=== PATIENT | female | born 2000 | race Caucasian/White ===

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

== ENCOUNTER 2021-03-08 14:07 | Emergency (ER) | payer OTHER ==
[2021-03-08] MEDS ORDERED: cefTRIAXone 500 MG VIAL IM STA (14:57)
[2021-03-08] MEDS ORDERED: AZITHROMYCIN 250 MG TABLET PO STA (14:57)
[2021-03-08] MEDS ORDERED: LIDOCAINE 1% 2 ML VIAL MC ONE (14:57)
[2021-03-08] MEDS ORDERED: HYDROcod/ACETAM 5/325 MG TABLET PO STA (14:58)
[2021-03-08 15:13] LABS: BILIRUBIN,URINE NEGATIVE (NEGATIVE); GLUCOSE, URINE (UA) NEGATIVE (NEGATIVE); KETONES,URINE (UA) NEGATIVE (NEGATIVE); LEUKOCYTE ESTERASE, URINE NEGATIVE (NEGATIVE); NITRITE,URINE NEGATIVE (NEGATIVE); OCCULT BLOOD,URINE NEGATIVE (NEGATIVE); PH,URINE 5.5 PH (5.0-7.5); PROTEIN,URINE 30 mg/dL (NEGATIVE); UROBILINOGEN,URINE 0.2 (NORMAL) E.U./dL (NORMAL)
[2021-03-08 15:15] LABS: BACTERIA,URINE None Seen /HPF (None Seen); CLARITY,URINE CLEAR (CLEAR); HCG UR QUAL NEGATIVE; MUCUS,URINE Few Strands; RBC,URINE 0-5 /HPF (0-5); SQUAMOUS EPITHELIAL CELL,UR FEW Squamous (<= Few); WBC,URINE 0-3 /HPF (0-5)
--- NOTE | 2021-03-08 15:15 | ED Physician Documentation ---
History of Present Illness - Stated complaint Stated Complaint: FEMALE - Chief complaint Chief Complaint: Abd Pain - Additonal information Additional information: 20-year-old female presents the emergency department for evaluation of a lower pelvic pain vaginal pain and vaginal discharge. She reports that for about 4 days she felt like she has had cuts down there. She also states that she has been having a lot of thick yellow discharge that she thought was likely a yeast infection. She does have a history of chlamydia. She was seen in this emergency department in December 2019 for concerns of pelvic pain and vaginal discharge. She was treated presumptively for PID at that time. Patient is sexually active with one male no condom use. She reports that he was tested today for sexually transmitted infection but does not know the results. Patient endorses dysuria but no fevers. No vomiting back pain or flank pain. Review of Systems Constitutional: reports: Reviewed and negative Eyes: reports: Reviewed and negative Throat: reports: Reviewed and negative Cardiac: reports: Chest pain / pressure Respiratory: reports: Reviewed and negative GI: reports: Reviewed and negative. denies: Nausea : reports: Dysuria, Discharge, Other (vaginal sores). 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 : None HEENT: None Psych: None Musculoskeletal: None Derm: None - Past Surgical History Past Surgical History: No - Present Medications Home Medications: Ambulatory Orders Medication Instructions Recorded Confirmed Benzonatate [Tessalon Perle] 100 - 200 mg PO TID PRN #30 capsule 01/26/20 Cetirizine HCl/Pseudoephedrine 1 each PO BID PRN #30 tab.er.12h 01/26/20 [Zyrtec-D Tablet] Ondansetron Odt [Zofran] 4 mg TL Q6H PRN #10 tablet 09/29/20 Sulfamethox/Trimeth 800/160 1 each PO BID #14 tablet 09/29/20 [Bactrim Ds 800/160] Acyclovir 400 mg PO TID 21 Days #21 tablet 03/08/21 Doxycycline Hyclate 100 mg PO BID 14 Days #28 03/08/21 HYDROcod/ACETAM 5/325 [[place] 5/325] 1 tab PO DAILY #3 tablet 03/08/21 - Allergies Allergies/Adverse Reactions: Allergies Allergy/AdvReac Type Severity Reaction Status Date / Time amoxicillin [From Augmentin] Allergy Hives Verified 03/08/21 14:21 azithromycin [From Zithromax] Allergy Hives Verified 03/08/21 14:21 cefdinir [From Omnicef] Allergy Hives Verified 03/08/21 14:22 clavulanic acid Allergy Hives Verified 03/08/21 14:21 [From Augmentin] - Social History Does the pt smoke?: No Smoking Status: Never smoker Does the pt drink ETOH?: Yes Does the pt have substance abuse?: No - Immunizations Immunizations are current?: Yes - POLST Patient has POLST: No PD ED PE EXPANDED - General General: Alert, Anxious - Cardiac Cardiac: Regular Rate, Radial strong equal, Pedal strong equal, Cap refill < 2 sec - Abdomen Abdomen: Normal Bowel sounds. No: Tender to palpation - Female Female : Vaginal Discharge, Elevator Mechanic present, Other (Poorly tolerated pelvic exam. Multiple shallow ulcerations at the entrance to the vagina. Unable to do a speculum or bimanual exam. Moderate amount of yellow discharge.) Results - Vitals Vitals: Vital Signs - 24 hr 03/08/21 14:15 Temperature 36.6 C Heart Rate 82 Respiratory 14 Rate Blood Pressure 143/98 H O2 Saturation 100 Oxygen O2 Source Room air - Labs Labs: Microbiology 03/08/21 14:45 Wet Prep - Final Genital - Vaginal Laboratory Tests 03/08/21 14:38 Urine Color YELLOW Urine Clarity CLEAR Urine pH 5.5 Ur Specific [place] >=1.030 H Urine Protein 30 H Urine Glucose (UA) NEGATIVE Urine Ketones NEGATIVE Urine Occult Blood NEGATIVE Urine Nitrite NEGATIVE Urine Bilirubin NEGATIVE Urine Urobilinogen 0.2 (NORMAL) Ur Leukocyte Esterase NEGATIVE Urine RBC 0-5 Urine WBC 0-3 Ur Squamous Epith Cells FEW Squamous Urine Bacteria None Seen Urine Mucus Few Strands Ur Microscopic Review INDICATED Urine Culture Comments NOT INDICATED Urine HCG, Qual NEGATIVE PD MEDICAL DECISION MAKING - ED course Complexity details: reviewed results, re-evaluated patient, considered differential, d/w patient ED course: 20-year-old female presents to the emergency department for evaluation of 4 days pain in her genital area that feels like cuts as well as yellow vaginal discharge. She is sexually active with one partner but not using condoms. She does have a history of chlamydia in the past. This provider did attempt to do a chaperoned pelvic exam but due to the lesions at the entrance to the vaginal vault it was not well tolerated and therefore a bimanual or speculum exam could not be completed. However she does have multiple shallow ulcerated lesions that is most consistent with herpes simplex. Patient will be started on acyclovir for first time outbreak as she denies ever having similar in the past. She did report yellow vaginal discharge. Her wet prep is negative GC is pending however I have empirically prescribed her 500 mg of ceftriaxone here in the emergency department and will discharge her with a prescription for doxycycline. Though I cannot confirm PID based on the clinical exam she is being treated as such with the ceftriaxone and doxycycline. I have encouraged her to have close follow-up with OB in the next few weeks to ensure full resolution of symptoms. We discussed that outpatient testing of herpes can be considered to confirm the suspected diagnosis. I am prescribing a short course of short-acting opioid pain medication for this patient. 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 I have discussed that the opioids are for short term therapy only, and will not be refilled from the ED. I am prescribing a short course of narcotic pain medication for you. These are potentially dangerous and addictive medications that should be used carefully. These medications may constipate you. Take an ubae-fbn-gvntfdn stool softener (docusate) twice daily with plenty of water while taking these medications. If you go 24 hours without a bowel movement, take gvgj-pib-nfkduer miralax, per package instructions. Do not drink or drive while taking these medications. If you received narcotic or sedating medications while in the emergency department, do not drive for 24 hours. Store this medication in a safe, secure place and out of reach of children. It is a violation of federal law to give or sell this medication to another person or to use in a manner other than prescribed. The ED will not refill narcotic prescriptions, including prescriptions lost or stolen. To dispose of unwanted medications: 1. [facility] at [address] in [place] has a medication drop box. They accept prescription medications (in pill form) Saturday through Saturday 9:00 a.m. to 5:00 p.m. 2. The [facility] accepts prescription medications (in pill form only) for disposal year round. Call for more information. 3. Contact the [facility] for the next [facility] sponsored prescription drug collection event. , [phone], or [phone]; Note that many narcotic pain relievers also contain Tylenol/acetaminophen. Please ensure that your total dose of acetaminophen from all sources does not exceed 3 g (3000 mg) per day. Departure - Departure Disposition: Home, Self Care Clinical Impression: Vaginal lesion, Vaginal discharge Condition: Stable Record reviewed to determine appropriate education?: Yes Instructions: Herpes Care Sores, STDs Follow-Up: [facility] [Provider Group] Prescriptions: Acyclovir 400 mg PO TID 21 Days #21 tablet Doxycycline Hyclate 100 mg PO BID 14 Days #28 HYDROcod/ACETAM 5/325 [[place] 5/325] 1 tab PO DAILY #3 tablet Comments: Cassity I hope that you are feeling better soon. As we discussed I suspect that the ulcerations that you have in your genital area are likely herpes. I am prescribing a medication called acyclovir that you are to take 3 times a day for the next 7 days. Taking a warm sitz bath/Epson salt bath at home can help with pain and discomfort in the genital area. I do recommend that you take ibuprofen with food 3 times a day for pain. You may also take the very limited amount of hydrocodone that I have prescribed for pain. We did do what is called a wet prep to check for yeast bacterial vaginosis and trichomonas. That is negative. However we are empirically treating you as though you could have chlamydia or gonorrhea. You were given an injection of an antibiotic here in the emergency department and you are to fill the prescription for the doxycycline and begin taking twice daily for the next 14 days. It is very important that you schedule an appointment for follow-up with the women's department. Repeat testing should be completed to make sure that the symptoms have fully resolved. As we discussed if you are positive for herpes this is a infection that can Episodically flare. Blood testing to test for this can be completed at the women's health clinic.
[2021-03-08 16:06] VITALS: BP 111/60
[2021-03-08 20:46] LABS: CHLAMYDIA TRACHOMATIS DNA NEGATIVE (NEGATIVE); NEISSERIA GONORRHOEAE DNA NEGATIVE (NEGATIVE); TRICHOMONAS VAGINALIS DNA NEGATIVE (NEGATIVE)
== END 2021-03-08 16:05 | disposition home or self-care (01) ==
LOC: ED 14:07
DX: N89.8 Other specified noninflammatory disorders of vagina (principal)
CPT/HCPCS: 81001; 81025; 87210; 87491; 87591; 87661; 96372; 99283; A9270; 81003; 87086

== ENCOUNTER 2021-05-15 16:22 | Emergency (ER) | payer OTHER ==
--- NOTE | 2021-05-15 17:05 | XRAY Report ---
PROCEDURE: Chest 1 View X-Ray INDICATIONS: Chest Pain TECHNIQUE: One view of the chest was acquired. COMPARISON: None. FINDINGS: Surgical changes and devices: None. Lungs and pleura: No pleural effusions or pneumothorax. Lungs are clear. Mediastinum: Mediastinal contours appear normal. Heart size is normal. Bones and chest wall: No suspicious bony lesions. Overlying soft tissues appear unremarkable. IMPRESSION: No acute disease. Reviewed by: Aneudy Alford MD on 05/15/2021 5:03 PM PDT Approved by: Aneudy Alford MD on 05/15/2021 5:03 PM PDT Station ID: [id number]
[2021-05-15 17:09] LABS: BASOPHILS % (AUTO) 0.2 %; EOSINOPHILS % (AUTO) 0.6 %; HCT - HEMATOCRIT 35.4 % (37.0-47.0); HGB - HEMOGLOBIN 11.7 g/dL (12.0-16.0); LYMPHOCYTES # (AUTO) 1.7 10^3/uL (1.5-3.5); LYMPHOCYTES % (AUTO) 32.6 %; MEAN CORPUSCULAR HGB CONC 33.1 g/dL (32.0-36.0); MEAN CORPUSCULAR VOLUME 93.7 fL (81.0-99.0); MONOCYTES # (AUTO) 0.4 10^3/uL (0.0-1.0); MONOCYTES % (AUTO) 6.7 %; NEUTROPHILS # (AUTO) 3.2 10^3/uL (1.5-6.6); NEUTROPHILS % (AUTO) 59.5 %; PLT - PLATELET COUNT 279 10^3/uL (130-450); RED BLOOD COUNT 3.78 10^6/uL (4.20-5.40); RED CELL DISTRIBUTION WIDTH 13.8 % (12.0-15.0); WHITE BLOOD COUNT 5.3 x10^3/uL (4.8-10.8)
--- NOTE | 2021-05-15 17:17 | ED Physician Documentation ---
History of Present Illness - Stated complaint Stated Complaint: LEFT ARM & LEG TINGLING, CHEST TIGHTNESS - Chief complaint Chief Complaint: Cardiac - History obtained from History obtained from: Patient, Friend - History of Present Illness Pain level max: 3 Pain level now: 2 - Additonal information Additional information: Patient is a 20-year-old female who presents to the emergency department stating that her chest feels tight and like it is hard to take a deep breath. She states that this been ongoing for the past several days. She states occasionally her left arm has tingling and occasionally her right arm has tingling. Both feel normal currently. No difficulty with speech. No facial droop. No weakness in the extremities. No back pain. She states she is unsure if she could be . She does smoke, vape, but is never used inhalers. No young family history of cardiac disease. No history of blood clots. Patient has had no swelling in her legs. No recent travel or surgery. Worse with taking a deep breath, better with rest. Patient states that she has had her Covid vaccinations. Review of Systems Ten Systems: 10 systems reviewed and negative Constitutional: denies: Fever, Chills Cardiac: denies: Chest pain / pressure Respiratory: reports: Dyspnea, Cough (Mild, dry). 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 : None HEENT: None Psych: None Musculoskeletal: None Derm: None - Past Surgical History Past Surgical History: No - Present Medications Home Medications: Ambulatory Orders Medication Instructions Recorded Confirmed Famotidine [Pepcid] 20 mg PO BID #60 tablet 05/15/21 HYDROcod/ACETAM 5/325 [[place] 5/325] 1 - 2 ea PO Q6H PRN #14 tablet 05/15/21 Ondansetron Odt [Zofran] 4 mg TL Q6H PRN #10 tablet 05/15/21 - Allergies Allergies/Adverse Reactions: Allergies Allergy/AdvReac Type Severity Reaction Status Date / Time amoxicillin [From Augmentin] Allergy Hives Verified 05/15/21 16:40 azithromycin [From Zithromax] Allergy Hives Verified 05/15/21 16:40 cefdinir [From Omnicef] Allergy Hives Verified 05/15/21 16:40 clavulanic acid Allergy Hives Verified 05/15/21 16:40 [From Augmentin] - Social History Does the pt smoke?: No Smoking Status: Never smoker Does the pt drink ETOH?: Yes Does the pt have substance abuse?: No - Immunizations Immunizations are current?: Yes - POLST Patient has POLST: No PD ED PE NORMAL - Vitals Vital signs reviewed: Yes - General General: Alert and oriented X 3, No acute distress, Well developed/nourished - HEENT HEENT: PERRL, Moist mucous membranes - Neck Neck: Supple, no meningeal sign - Cardiac Cardiac: RRR, No murmur, Strong equal pulses - Respiratory Respiratory: No respiratory distress, Clear bilaterally - Abdomen Abdomen: Soft, Non tender, Non distended - Back Back: No CVA TTP, No spinal TTP - Derm Derm: Warm and dry, No rash - Extremities Extremities: No edema, No calf tenderness / cord - Neuro Neuro: Alert and oriented X 3 - Psych Psych: Normal mood, Normal affect Results - Vitals Vitals: Vital Signs - 24 hr 05/15/21 05/15/21 05/15/21 16:35 17:40 17:47 Temperature 37.2 C Heart Rate 88 87 82 Respiratory 16 14 22 Rate Blood Pressure 118/65 134/122 H O2 Saturation 100 100 05/15/21 20:56 Temperature Heart Rate 78 Respiratory 16 Rate Blood Pressure 109/61 O2 Saturation 100 Oxygen O2 Source Room air - EKG (time done) 1644 Rate: Rate (enter#) (87) Rhythm: NSR [place]: Normal Intervals: Normal OK QRS: Normal Ischemia: Normal ST segments - Labs Labs: Laboratory Tests 05/15/21 05/15/21 05/15/21 17:00 17:00 17:00 WBC 5.3 RBC 3.78 L Hgb 11.7 L Hct 35.4 L MCV 93.7 MCH 31.0 MCHC 33.1 RDW 13.8 Plt Count 279 MPV 10.0 Neut # (Auto) 3.2 Lymph # (Auto) 1.7 [place] # (Auto) 0.4 Eos # (Auto) 0.0 Baso # (Auto) 0.0 Absolute Nucleated RBC 0.00 Nucleated RBC % 0.0 Sodium 137 Potassium 3.7 Chloride 104 Carbon Dioxide 24 Anion Gap 9.0 BUN 18 Creatinine 0.8 Estimated GFR (MDRD) 92 Glucose 57 L* POC Whole Bld Glucose Calcium 9.2 Total Bilirubin 0.8 AST 26 ALT 17 Alkaline Phosphatase 63 Troponin I High Sens < 2.3 L Total Protein 7.5 Albumin 4.6 Globulin 2.9 Albumin/Globulin Ratio 1.6 Lipase 32 Urine Color Urine Clarity Urine pH Ur Specific [place] Urine Protein Urine Glucose (UA) Urine Ketones Urine Occult Blood Urine Nitrite Urine Bilirubin Urine Urobilinogen Ur Leukocyte Esterase Ur Microscopic Review Urine Culture Comments Urine HCG, Qual Urine Opiates Screen Ur Oxycodone Screen Urine Methadone Screen Ur Propoxyphene Screen Ur Barbiturates Screen Ur Tricyclics Screen Ur Phencyclidine Scrn Ur Amphetamine Screen U Methamphetamines Scrn U Benzodiazepines Scrn Urine Cocaine Screen U Cannabinoids Screen 05/15/21 05/15/21 05/15/21 17:30 17:30 19:27 WBC RBC Hgb Hct MCV MCH MCHC RDW Plt Count MPV Neut # (Auto) Lymph # (Auto) [place] # (Auto) Eos # (Auto) Baso # (Auto) Absolute Nucleated RBC Nucleated RBC % Sodium Potassium Chloride Carbon Dioxide Anion Gap BUN Creatinine Estimated GFR (MDRD) Glucose POC Whole Bld Glucose 71 Calcium Total Bilirubin AST ALT Alkaline Phosphatase Troponin I High Sens Total Protein Albumin Globulin Albumin/Globulin Ratio Lipase Urine Color YELLOW Urine Clarity CLEAR Urine pH 7.0 Ur Specific [place] 1.020 Urine Protein NEGATIVE Urine Glucose (UA) NEGATIVE Urine Ketones NEGATIVE Urine Occult Blood NEGATIVE Urine Nitrite NEGATIVE Urine Bilirubin NEGATIVE Urine Urobilinogen 0.2 (NORMAL) Ur Leukocyte Esterase NEGATIVE Ur Microscopic Review NOT INDICATED Urine Culture Comments NOT INDICATED Urine HCG, Qual NEGATIVE Urine Opiates Screen NEGATIVE Ur Oxycodone Screen NEGATIVE Urine Methadone Screen NEGATIVE Ur Propoxyphene Screen NEGATIVE Ur Barbiturates Screen NEGATIVE Ur Tricyclics Screen NEGATIVE Ur Phencyclidine Scrn NEGATIVE Ur Amphetamine Screen NEGATIVE U Methamphetamines Scrn NEGATIVE U Benzodiazepines Scrn NEGATIVE Urine Cocaine Screen NEGATIVE U Cannabinoids Screen NEGATIVE - Rads (name of study) cxr Radiology: Final report received, EMP read contemporaneously, See rad report (No acute abnormality) CT PA Radiology: Final report received, EMP read contemporaneously, See rad report (No PE. No acute abnormality) PD MEDICAL DECISION MAKING - ED course Complexity details: reviewed results, re-evaluated patient, considered differential (No ST elevation OR, no aortic dissection, no PE, no tension pneumothorax, no aortic aneurysm), d/w patient, d/w family ED course: Unclear etiology of the patient's symptoms. Maalox did not seem to change her pain. Pain did not change much with Toradol. No evidence of aortic dissection, pulmonary embolus. No evidence of biliary colic. Abdomen is soft, nontender nondistended on serial exam. No significant lab abnormalities. We will trial her on pain medication and nausea medication for home and see how she progresses. Patient was mildly hypoglycemic, this is a recurrent issue for the patient. Tolerating p.o. without difficulty here. Blood sugar normal on fingerstick glucose recheck. Patient counseled regarding signs and symptoms for which I believe and urgent re-evaluation would be necessary. Patient with good u nderstanding of and agreement to plan and is comfortable going home at this time This document was made in part using voice recognition software. While efforts are made to proofread this document, sound alike and grammatical errors may occur. Departure - Departure Disposition: 01 Home, Self Care Clinical Impression: Chest pain Qualifiers: Chest pain type: unspecified Qualified Code(s): R07.9 - Chest pain, unspecified Condition: Good Instructions: ED Chest Pain Atypical Unkn Cause Follow-Up: your,doctor in 1 week [Other] Prescriptions: HYDROcod/ACETAM 5/325 [[place] 5/325] 1 - 2 ea PO Q6H PRN #14 tablet PRN Reason: Pain Famotidine [Pepcid] 20 mg PO BID #60 tablet Ondansetron Odt [Zofran] 4 mg TL Q6H PRN #10 tablet PRN Reason: Nausea / Vomiting Comments: The cause of your symptoms is unclear today. Please follow-up with your doctor for further care. Return if you worsen. Drink plenty of fluids and rest. I am prescribing a short course of narcotic pain medication for you. These are potentially dangerous and addictive medications that should be used carefully. These medications may constipate you. Take an vdld-ocq-pikyoti stool softener (docusate) twice daily with plenty of water while taking these medications. If you go 24 hours without a bowel movement, take acka-hdn-aomemfr miralax, per package instructions. Do not drink or drive while taking these medications. If you received narcotic or sedating medications while in the emergency department, do not drive for 24 hours. Store this medication in a safe, secure place and out of reach of children. It is a violation of federal law to give or sell this medication to another person or to use in a manner other than prescribed. The ED will not refill narcotic prescriptions, including prescriptions lost or stolen. To dispose of unwanted medications: 1. [facility] at [address] in [place] has a medication drop box. They accept prescription medications (in pill form) Saturday through Saturday 9:00 a.m. to 5:00 p.m. 2. The [facility] Police Department accepts prescription medications (in pill form only) for disposal year round. Call for more information. 3. Contact the [facility] for the next [facility] sponsored prescription drug collection event. , [phone], or [phone]; Discharge Date/Time: 05/15/21 20:56
[2021-05-15 17:25] LABS: ALBUMIN 4.6 g/dL (3.2-5.5); ALBUMIN/GLOBULIN RATIO 1.6 (1.0-2.2); BILIRUBIN,TOTAL 0.8 mg/dL (0.2-1.0); CALCIUM 9.2 mg/dL (8.5-10.3); CREATININE 0.8 mg/dL (0.4-1.0); POTASSIUM 3.7 mmol/L (3.5-5.0); TOTAL PROTEIN 7.5 g/dL (6.7-8.2)
[2021-05-15 17:38] LABS: BILIRUBIN,URINE NEGATIVE (NEGATIVE); GLUCOSE, URINE (UA) NEGATIVE (NEGATIVE); KETONES,URINE (UA) NEGATIVE (NEGATIVE); LEUKOCYTE ESTERASE, URINE NEGATIVE (NEGATIVE); NITRITE,URINE NEGATIVE (NEGATIVE); OCCULT BLOOD,URINE NEGATIVE (NEGATIVE); PROTEIN,URINE NEGATIVE (NEGATIVE); UROBILINOGEN,URINE 0.2 (NORMAL) E.U./dL (NORMAL)
[2021-05-15] MEDS: ALBUTEROL NEB 2.5 MG/3 ML INH STA (17:39)
[2021-05-15 17:54] LABS: MUDS CUTOFF CONCENTRATIONS CUTOFF CONC BELOW:
[2021-05-15 17:55] LABS: CLARITY,URINE CLEAR (CLEAR); HCG UR QUAL NEGATIVE
[2021-05-15 18:15] LABS: AMPHETAMINE SCREEN,URINE NEGATIVE (NEGATIVE); BARBITURATE SCREEN,UR NEGATIVE (NEGATIVE); BENZODIAZEPINES SCREEN, URINE NEGATIVE (NEGATIVE); COCAINE SCREEN URINE NEGATIVE (NEGATIVE); METHADONE SCREEN, URINE NEGATIVE (NEGATIVE); METHAMPHETAMINES SCREEN, URINE NEGATIVE (NEGATIVE); OPIATE SCREEN, URINE NEGATIVE (NEGATIVE); OXYCODONE SCREEN, URINE NEGATIVE (NEGATIVE); PROPOXYPHENE SCREEN, URINE NEGATIVE (NEGATIVE); THC CANNABINOID SCREEN, URINE NEGATIVE (NEGATIVE); TRICYCLIC ANTIDEPRESSANT,URINE NEGATIVE (NEGATIVE)
[2021-05-15] MEDS: KETOROLAC 30 MG/ML VIAL IVP STA (18:51)
[2021-05-15] MEDS: MAG HYDROX/AL HYDROX/SIMETH 30 ML UDC PO STA (18:52)
[2021-05-15] MEDS ORDERED: IOPAMIDOL-300 100 ML VIAL ONE (18:53)
[2021-05-15] MEDS: IOPAMIDOL-300 100 ML VIAL IVP ONE (19:37)
--- NOTE | 2021-05-15 19:42 | CT Report ---
PROCEDURE: ANGIO CHEST W/WO INDICATIONS: chest pain, dyspnea, PE study CONTRAST: IV CONTRAST: Isovue 300 ml: 80 PO CONTRAST: *NO PO CONTRAST TECHNIQUE: After the administration of intravenous contrast, images were acquired from the pulmonary apices to t he posterior costophrenic angles. 3-dimensional maximum intensity projection (MIP) coronal and sagit osbaldo reformats were then acquired through the thorax. For radiation dose reduction, the following was used: automated exposure control, adjustment of mA and/or kV according to patient size. COMPARISON: CXR earlier today. FINDINGS: Image quality: Excellent. Pulmonary arteries: Pulmonary arteries are normal in size, and demonstrate no intraluminal filling d efects to suggest pulmonary embolism. Lungs and pleura: Lungs are clear. No pleural effusions or pneumothorax. Central and peripheral ai rways are patent. Mediastinum: Heart size is normal, without pericardial effusion. No mediastinal or hilar adenopathy . Thoracic aorta is normal in caliber and enhancement. Esophagus is normal in caliber, without hiat al hernia. Bones and chest wall: No suspicious bony lesions. Ribs and thoracic spine appear intact throughout. No axillary or supraclavicular adenopathy. The thyroid is normal in size and there are no incident al findings. Abdomen: Visualized upper abdominal solid organs appear normal in the early arterial phase of enhanc ement. IMPRESSION: 1. No pulmonary embolism. 2. No acute airspace opacity. Reviewed by: Dheeraj Walls MD on 05/15/2021 7:41 PM PDT Approved by: Dheeraj Walls MD on 05/15/2021 7:41 PM PDT Station ID: [id number]
[2021-05-15] MEDS: ONDANSETRON 4 MG/2 ML VIAL IVP STA (20:31)
[2021-05-15] MEDS: MORPHINE 2 MG/ML CARPUJECT IVP STA (20:33)
[2021-05-15 20:56] VITALS: BP 109/61
== END 2021-05-15 20:56 | disposition home or self-care (01) ==
LOC: ED 16:22
DX: R07.9 Chest pain, unspecified (principal); E16.2 Hypoglycemia, unspecified; Z20.822 Contact with and (suspected) exposure to COVID-19
CPT/HCPCS: 36415; 71045; 71275; 80053; 80306; 81003; 81025; 83690; 84484; 85025; 87635; 93005; 94640; 96374; 96375; 99284; A9270; Q9967; 81001; 87086

== ENCOUNTER 2021-07-15 12:01 | Emergency (ER) | payer OTHER ==
[2021-07-15 12:38] LABS: RAPID STREP SCREEN Negative (Negative)
[2021-07-15] MEDS ORDERED: DEXAMETHASONE 10 MG/ML VIAL PO STA (16:05)
[2021-07-15] MEDS ORDERED: CHERRY SYRUP 10 ML UDC PO ONE (16:05)
[2021-07-15] MEDS ORDERED: HYDROcod/ACETAM 5/325 MG TABLET PO STA (16:05)
--- NOTE | 2021-07-15 16:19 | ED Physician Documentation ---
History of Present Illness - Stated complaint Stated Complaint: SORE THROAT - Chief complaint Chief Complaint: Heent - Additonal information Additional information: 21-year-old female presents emergency department for evaluation of 3 days sore throat. No cough. She does report a subjective fever. No tonsillar exudate. No new sick contacts. Fully vaccinated for COVID-19. Review of Systems Constitutional: reports: Fever, Myalgias. denies: Chills Eyes: reports: Reviewed and negative Ears: reports: Reviewed and negative Nose: reports: Reviewed and negative Throat: reports: Sore throat Cardiac: reports: Reviewed and negative Respiratory: reports: Reviewed and negative GI: reports: Reviewed and negative : reports: Reviewed and negative PD PAST MEDICAL HISTORY - Past Medical History Cardiovascular: None Respiratory: None Neuro: None Endocrine/Autoimmune: None GI: None A R SPECIALIST: None : None HEENT: None Psych: None Musculoskeletal: None Derm: None - Past Surgical History Past Surgical History: No - Present Medications Home Medications: Ambulatory Orders Medication Instructions Recorded Confirmed Famotidine [Pepcid] 20 mg PO BID #60 tablet 05/15/21 HYDROcod/ACETAM 5/325 [[place] 5/325] 1 - 2 ea PO Q6H PRN #14 tablet 05/15/21 Ondansetron Odt [Zofran] 4 mg TL Q6H PRN #10 tablet 05/15/21 - Allergies Allergies/Adverse Reactions: Allergies Allergy/AdvReac Type Severity Reaction Status Date / Time amoxicillin [From Augmentin] Allergy Hives Verified 07/15/21 12:23 azithromycin [From Zithromax] Allergy Hives Verified 07/15/21 12:23 [email or web address] [From Omnicef] Allergy Hives Verified 07/15/21 12:23 clavulanic acid Allergy Hives Verified 07/15/21 12:23 [From Augmentin] - Social History Does the pt smoke?: No Smoking Status: Never smoker Does the pt drink ETOH?: Yes Does the pt have substance abuse?: No - Immunizations Immunizations are current?: Yes - POLST Patient has POLST: No PD ED PE NORMAL - General General: Alert and oriented X 3, No acute distress - HEENT HEENT: PERRL, Moist mucous membranes. No: Pharynx benign (Posterior oropharynx erythema without tonsillar exudate. Uvula is midline. No soft palate asymmetry or swelling. Normal phonation. Full range of motion of neck.) - Neck Neck: Supple, no meningeal sign. No: No adenopathy - Cardiac Cardiac: RRR, No murmur - Respiratory Respiratory: Clear bilaterally - Abdomen Abdomen: Normal bowel sounds, Soft, Non tender, Non distended - Back Back: No CVA TTP, No spinal TTP - Derm Derm: Normal color, Warm and dry, No rash - Extremities Extremities: No deformity - Neuro Neuro: Alert and oriented X 3 Eye Opening: Spontaneous Motor: Obeys Commands Verbal: Oriented GCS Score: 15 - Psych Psych: Normal mood Results - Vitals Vitals: Vital Signs - 24 hr 07/15/21 12:23 Temperature 36.9 C Heart Rate 72 Respiratory 16 Rate Blood Pressure 99/67 O2 Saturation 100 Oxygen O2 Source Room air - Labs Labs: Laboratory Tests 07/15/21 12:27 Group A Strep Rapid Negative PD MEDICAL DECISION MAKING - ED course Complexity details: reviewed results, considered differential, d/w patient ED course: 21-year-old female presents emergency department for evaluation of a sore throat for 3 days. Rapid strep is negative. No fever or tonsillar exudate. Does not meet [facility] criteria for empiric treatment. No findings to suggest RPA or [employer]. Patient was given one-time dose of Decadron here in the emergency department. Advised warm salt water gargles as well as ibuprofen and Tylenol. Emergent return precautions were discussed for worsening symptoms. Will defer antibiotics unless culture positive. Departure - Departure Disposition: 01 Home, Self Care Clinical Impression: Pharyngitis Qualifiers: Pharyngitis/tonsillitis etiology: unspecified etiology Qualified Code(s): J02.9 - Acute pharyngitis, unspecified Condition: Stable Record reviewed to determine appropriate education?: Yes Instructions: ED Pharyngitis Viral Comments: Sarah was seen in the emergency department today for a sore throat. Your rapid strep is negative. We are sending the swab to the lab for a culture. We will prescribe antibiotics only if the culture is positive. However most causes of sore throat are due to a virus. You are given a one-time dose of Decadron here in the emergency department which is a steroid and should help with pain and inflammation over the next 72 hours. I do recommend you continue to gargle with warm salt water and take Tylenol or ibuprofen as needed.
[2021-07-15 16:22] VITALS: BP 127/60
== END 2021-07-15 16:24 | disposition home or self-care (01) ==
LOC: ED 12:01
DX: J02.9 Acute pharyngitis, unspecified (principal)
CPT/HCPCS: 87070; 87430; 99282; 99283; A9270